=== PATIENT | female | born 1980 ===

== ENCOUNTER 2017-04-08 17:46 | Emergency (ER) | payer OTHER ==
[2017-04-08 17:58] VITALS: BMI 42.5
[2017-04-08 18:03] VITALS: O2SAT 100
[2017-04-08] MEDS ORDERED: Sodium Chloride 0.9% 1,000 ML IV STA (18:06)
--- NOTE | 2017-04-08 18:06 | ED PDOC ---
Arrival/HPI - General Chief Complaint: Abdominal Pain Time Seen by Provider: 04/08/17 18:02 Historian: Patient - History of Present Illness Narrative History of Present Illness (Text): 04/08/17 18:02 36 y/o female, pmh including cholelethiasis, allergic to penicillin, c/o epigastric pain x 2 hours. Pt. stated that she had sudden onset of the epigastric pain after the meal, feels nausea with a quick soft stool, no chest pain or shortness of breath, no chest pain or shortness of breath, no palpitation, no numbness or tingling, no other medical or psychological complaints. Past Medical History - Provider Review Nursing Documentation Reviewed: Yes - Infectious Disease Hx of Infectious Diseases: None - Tetanus Immunization Tetanus Immunization: Unknown - Cardiac Hx Cardiac Disorders: No - Pulmonary Hx Asthma: Yes - Neurological Hx Neurological Disorder: No - HEENT Hx HEENT Disorder: No - Renal Hx Renal Disorder: No - Endocrine/Metabolic Hx Endocrine Disorders: No - Hematological/Oncological Hx Blood Disorders: No - Integumentary Hx Dermatological Disorder: No - Musculoskeletal/Rheumatological Hx Musculoskeletal Disorders: No Hx Falls: No - Gastrointestinal Hx Gall Bladder Disease: Yes Hx Gastroesophageal Reflux: Yes Other/Comment: gallstones - Genitourinary/Gynecological Hx Genitourinary Disorders: No - Psychiatric Hx Depression: No Hx Emotional Abuse: No Hx Physical Abuse: No Hx Substance Use: No - Past Surgical History Past Surgical History: No Previous - Anesthesia Hx Anesthesia: No - Suicidal Assessment Feels Threatened In Home Enviroment: No Family/Social History - Physician Review Nursing Documentation Reviewed: Yes Family/Social History: Unknown Family HX Smoking Status: Never Smoked Hx Alcohol Use: No Hx Substance Use: No Hx Substance Use Treatment: No Allergies/Home Meds Allergies/Adverse Reactions: Allergies almond Allergy (Verified 04/08/17 17:59) SWELLING mushroom Allergy (Verified 04/08/17 17:59) RASH Penicillins Allergy (Verified 04/08/17 17:59) RASH seafood Allergy (Uncoded 04/08/17 17:59) SWELLING Review of Systems - Review of Systems Constitutional: absent: Fatigue Eyes: absent: Vision Changes ENT: absent: Hearing Changes Respiratory: absent: SOB, Cough Cardiovascular: absent: Chest Pain Gastrointestinal: Abdominal Pain, Nausea. absent: Diarrhea, Vomiting Musculoskeletal: absent: Arthralgias, Back Pain Skin: absent: Rash, Pruritis Neurological: absent: Headache, Dizziness, Gait Changes Physical Exam Vital Signs Reviewed: Yes Vital Signs Temp Pulse Resp BP Pulse Ox 04/08/17 22:54 97.8 F 76 16 123/76 100 04/08/17 18:01 98.5 F 84 18 134/78 100 Temperature: Afebrile Blood Pressure: Normal Pulse: Regular Respiratory Rate: Normal Appearance: Positive for: Well-Appearing, Non-Toxic Pain Distress: Mild Mental Status: Positive for: Alert and Oriented X 3 - Systems Exam Head: Present: Atraumatic, Normocephalic Pupils: Present: PERRL Extroacular Muscles: Present: EOMI Conjunctiva: Present: Normal Mouth: Present: Moist Mucous Membranes Neck: Present: Normal Range of Motion Respiratory/Chest: Present: Clear to Auscultation, Good Air Exchange. No: Respiratory Distress, Accessory Muscle Use Cardiovascular: Present: Regular Rate and Rhythm, Normal S1, S2. No: Murmurs Abdomen: Present: Tenderness (+epigastric tenderness), Normal Bowel Sounds. No : Distention, Peritoneal Signs, Rebound, Guarding Back: Present: Normal Inspection. No: CVA Tenderness Upper Extremity: Present: Normal Inspection. No: Cyanosis, Edema Lower Extremity: Present: Normal Inspection. No: Edema Neurological: Present: GCS=15, Speech Normal, Motor Func Grossly Intact, Gait Normal, Memory Normal Skin: Present: Warm, Dry, Normal Color. No: Rashes Psychiatric: Present: Alert, Oriented x 3, Normal Insight, Normal Concentration Medical Decision Making ED Course and Treatment: 04/08/17 18:10 -labs/lipase/ua -gallbladder sonogram -IVF/reglan/pepcid -observe and reassess -Discharge home with pepcid, stay hyrated, bed rest, follow up with your own pmd and GI within 2 days, return to the ER for any new or worsening signs or symptoms. 04/08/17 20:56 -Labs are non-significant except wbc 11.2 which can be pain induced, no fever or chills. -Sonogram show negative lizama with no wall thickening. -Pt. still has the pain, morphine and zofran ordered, CT abdomen and pelvis added. 04/08/17 23:00 -Pt. refused IV or oral contrast. -CT abdomen and pelvis show no acute findings. pt. feels much better, will discharge home. -Discharge home with prilosec, stay hydrated, avoid eating 2 hours before sleeping and avoid skipping meals, avoid drinking acidic/sour/spicy/fried food, avoid carbonated drink, follow up with your own pmd and GI within 2 days, return to the ER for any new or worsening signs or symptoms. - Lab Interpretations Lab Results: 04/08/17 18:12 04/08/17 18:12 Lab Results 04/08/17 18:12: Sodium 140, Potassium 3.8, Chloride 105, Carbon Dioxide 25, Anion Gap 14, BUN 11, Creatinine 0.7, Est GFR ( Amer) > 60, Est GFR (Non- Af Amer) > 60, Random Glucose 98, Calcium 8.6, Total Bilirubin 0.5, AST 83 H, ALT 68 H, Alkaline Phosphatase 85, Total Protein 7.3, Albumin 3.8, Globulin 3.4 , Albumin/Globulin Ratio 1.1, Lipase 132 04/08/17 18:12: WBC 11.2 H D, RBC 4.16, Hgb 12.7, Hct 37.6, MCV 90.4, MCH 30.5, MCHC 33.8, RDW 12.5, Plt Count 360, MPV 9.0, Gran % 46.4 L, Lymph % (Auto) 46.4 H, [place] % (Auto) 4.7, Eos % (Auto) 2.2, Baso % (Auto) 0.3, Gran # 5.18, Lymph # 5.2 H, [place] # 0.5, Eos # 0.3, Baso # 0.03 04/08/17 18:10: Urine Color Yellow, Urine Appearance Sl cloudy, Urine pH 6.0, Ur Specific [place] 1.025, Urine Protein Negative, Urine Glucose (UA) Negative, Urine Ketones Trace H, Urine Blood Large H, Urine Nitrate Negative, Urine Bilirubin Negative, Urine Urobilinogen 0.2, Ur Leukocyte Esterase Negative, Urine RBC 5 - 10, Urine WBC 0 - 2, Ur Epithelial Cells 6 - 8, Urine Bacteria Mod I have reviewed the lab results: Yes - RAD Interpretation Radiology Orders: 04/08/17 18:06 GALL BLADDER [US] Stat 04/08/17 20:24 ABD & PELVIS W/O PO OR IV CONT [CT] Stat FINDINGS: Liver: Diffuse fatty infiltration of the liver. The liver is enlarged. Gallbladder: There are gallstones. There is no wall thickening. No pericholecystic fluid collection. No Lizama's sign as per technologist. Common bile duct: The CBD measures 0.7 cm borderline dilated. No stones. Pancreas: Pancreas evaluation is limited. Right kidney: No stones. No hydronephrosis. IMPRESSION: There are gallstones. There is no wall thickening. No pericholecystic fluid collection. No Lizama's sign as per technologist. Thank you for allowing us to participate in the care of your patient. Dictated and Authenticated by: Susy Glez MD 04/08/2017 7:53 PM Eastern Time ([employer]) ABDOMEN: Liver: Fatty infiltration of the liver. Liver is enlarged. Gallbladder and bile ducts: There are several gallstones. No CT evidence of pericholecystic inflammatory changes. Pancreas: No peripancreatic inflammatory changes. No ductal dilation. Spleen: Unremarkable. No splenomegaly. Adrenals: Unremarkable. No mass. Kidneys and ureters: Unremarkable. No obstructing stones. No hydronephrosis. Stomach and bowel: Bowel evaluation is limited due to lack of distention. No mucosal thickening. Appendix: No findings to suggest acute appendicitis. PELVIS: Bladder: Unremarkable. No stones. Reproductive: Unremarkable as visualized. ABDOMEN and PELVIS: Intraperitoneal space: Unremarkable. No free air. No significant fluid collection. Bones/joints: No acute fracture. No dislocation. Soft tissues: Unremarkable. Vasculature: Unremarkable. No abdominal aortic aneurysm. Lymph nodes: Unremarkable. No enlarged lymph nodes. IMPRESSION: There are several gallstones. No CT evidence of pericholecystic inflammatory changes. Thank you for allowing us to participate in the care of your patient. Dictated and Authenticated by: Susy Glez MD 04/08/2017 10:42 PM Eastern Time ([place] & [employer]) Hotel Maintenance Engineer: Radiologist - Medication Orders Current Medication Orders: Discontinued Medications Famotidine (Pepcid) 20 mg IVP STAT STA Stop: 04/08/17 18:07 Last Admin: 04/08/17 18:35 Dose: 20 mg Sodium Chloride (Sodium Chloride 0.9%) 1,000 mls @ 999 mls/hr IV .Q1H1M STA Stop: 04/08/17 19:06 Last Admin: 04/08/17 18:35 Dose: 999 mls/hr Metoclopramide HCl (Reglan) 10 mg IVP STAT STA Stop: 04/08/17 18:11 Last Admin: 04/08/17 18:35 Dose: Not Given Non-Admin Reason: Patient Refused Morphine Sulfate (Morphine) 4 mg IVP STAT STA Stop: 04/08/17 20:57 Last Admin: 04/08/17 21:34 Dose: Not Given Non-Admin Reason: Patient Refused Ondansetron HCl (Zofran Inj) 4 mg IVP STAT STA Stop: 04/08/17 20:57 Last Admin: 04/08/17 21:34 Dose: Not Given Non-Admin Reason: Patient Refused - PA / MANAGER INFUSION / Resident Statement MD/ has reviewed & agrees with the documentation as recorded. Disposition/Present on Arrival - Present on Arrival Any Indicators Present on Arrival: No History of DVT/PE: No History of Uncontrolled Diabetes: No Urinary Catheter: No History of Decub. Ulcer: No History Surgical Site Infection Following: None - Disposition Have Diagnosis and Disposition been Completed?: Yes Diagnosis: Gastritis Disposition: HOME/ ROUTINE Disposition Time: 23:02 Patient Plan: Discharge Condition: IMPROVED Additional Instructions: -Discharge home with prilosec, stay hydrated, avoid eating 2 hours before sleeping and avoid skipping meals, avoid drinking acidic/sour/spicy/fried food, avoid carbonated drink, follow up with your own pmd and GI within 2 days, return to the ER for any new or worsening signs or symptoms. Prescriptions: Omeprazole Magnesium [Prilosec Otc] 20 mg PO DAILY #10 tcp Referrals: Isela Nieto MD [Primary Care Provider] - Follow up with primary Forms: WORK NOTE
[2017-04-08 18:22] LABS: URINE APPEARANCE SL CLOUDY (CLEAR); URINE BILIRUBIN NEGATIVE (NEGATIVE); URINE BLOOD LARGE (NEGATIVE); URINE COLOR YELLOW (YELLOW); URINE GLUCOSE (UA) NEGATIVE (NEGATIVE); URINE LEUKOCYTE ESTERASE NEGATIVE Leu/uL (NEGATIVE); URINE NITRATE NEGATIVE (NEGATIVE); URINE PROTEIN NEGATIVE mg/dL (<30 mg/dL); URINE UROBILINOGEN 0.2 E.U./dL (<1 E.U./dL)
[2017-04-08 18:36] LABS: URINE BACTERIA MOD (NEG); URINE WBC 0 - 2 /hpf (0-6)
[2017-04-08 18:40] LABS: BASO # 0.03 K/mm3 (0.0-2.0); BASO % 0.3 % (0.0-3.0); EOS # 0.3 (0.0-0.7); EOS % 2.2 % (1.5-5.0); GRAN # 5.18 (1.4-6.5); GRAN % 46.4 % (50.0-68.0); HEMOGLOBIN 12.7 gm/dL (12.0-16.0); LYMPH # 5.2 (1.2-3.4); LYMPH % 46.4 % (22.0-35.0); MEAN CELL VOLUME 90.4 fL (80.0-105.0); MEAN CORPUSCULAR HEMOGLOBIN 30.5 pg (25.0-35.0); MEAN CORPUSCULAR HGB CONC 33.8 g/dl (31.0-37.0); MONO # 0.5 (0.1-0.6); MONO % 4.7 % (1.0-6.0); PLATELET COUNT 360 10^3/uL (120.0-450.0); RBC 4.16 10^6/uL (3.5-6.1); RED CELL DISTRIBUTION WIDTH 12.5 % (11.5-14.5); WHITE BLOOD COUNT 11.2 10^3/ul (4.5-11.0)
[2017-04-08 18:46] LABS: ALB/GLOB RATIO 1.1 (1.1-1.8); ALBUMIN 3.8 g/dL (3.0-4.8); ALT/SGPT 68 U/L (7-56); AST/SGOT 83 U/L (15-39); BLOOD UREA NITROGEN 11 mg/dL (7-21); CALCIUM 8.6 mg/dL (8.4-10.5); GFR AFRICAN-AMERICAN > 60; GFR NON-AFRICAN AMERICAN > 60; LIPASE 132 U/L (23-300)
[2017-04-08] MEDS: Morphine 4 mg/ml ISec IVP STA ×2 (21:08→21:34)
[2017-04-08 23:18] VITALS: BP 108/68; PULSE 62; RESP 18; TEMP 98.4
--- NOTE | 2017-04-09 08:52 | US ---
HISTORY: epigastric pain COMPARISON: None. TECHNIQUE: Sonographic evaluation of the right upper quadrant of the abdomen. FINDINGS: LIVER: Measures 18.1 by 12.7 x 20.1 cm in length. Diffuse increased echogenicity of the liver parenchyma. No mass. No intrahepatic bile duct dilatation. GALLBLADDER: Multiple gallstones at some sludge is noted. No gallbladder wall edema or pericholecystic fluid. No positive sonographic Lizama sign reported per technologist. COMMON BILE DUCT: Measures 7 mm. -this tapers to the head of the pancreas where it measures 0.7 mm. A 7 mm is borderline prominent No stones. PANCREAS: Unremarkable as visualized. No mass. No ductal dilatation. RIGHT KIDNEY: Measures 10.9 x 4.5 x 4.5 cm in length. Normal echogenicity. No calculus, mass, or hydronephrosis. AORTA: No aneurysmal dilatation. IVC: Unremarkable. OTHER FINDINGS: None . IMPRESSION: Hepatomegaly with the hepatic steatosis or other hepatic parenchymal diffuse pathology. No discrete liver mass is appreciated. No dilated ducts Multiple gallstones with some gallbladder sludge. No positive sonographic Lizama sign. No pericholecystic fluid or gallbladder wall thickening/edema suggested. Common bile duct borderline prominent. No stones here is noted Comments: Preliminary report sent to ad
--- NOTE | 2017-04-09 08:55 | CT ---
PROCEDURE: CT Abdomen and Pelvis without intravenous contrast HISTORY: epigastric/upper abdominal pain COMPARISON: None. TECHNIQUE: Without contrast.. Contrast Dose: Radiation dose: Total exam DLP = 1312 mGy-cm. This CT exam was performed using one or more of the following dose reduction techniques: Automated exposure control, adjustment of the mA and/or kV according to patient size, and/or use of iterative reconstruction technique. FINDINGS: LOWER THORAX: Unremarkable. LIVER: Unremarkable. No gross lesion or ductal dilatation. GALLBLADDER AND BILE DUCTS: Multiple gallstones are seen. No evidence of gallbladder inflammation PANCREAS: Unremarkable. No gross lesion or ductal dilatation. SPLEEN: Unremarkable. ADRENALS: Unremarkable. No mass. KIDNEYS AND URETERS: Unremarkable. No hydronephrosis. No solid mass. VASCULATURE: Unremarkable. No aortic aneurysm. BOWEL: Unremarkable. No obstruction. No gross mural thickening. APPENDIX: Unremarkable. Normal appendix. PERITONEUM: Unremarkable. No free fluid. No free air. LYMPH NODES: Unremarkable. No enlarged lymph nodes. BLADDER: Unremarkable. REPRODUCTIVE: Unremarkable. BONES: No acute fracture. OTHER FINDINGS: The report concurs with the preliminary [facility] report IMPRESSION: Multiple gallstones. No acute intra-abdominal findings
== END 2017-04-08 23:18 | disposition home or self-care (01) ==
LOC: ED 17:46
DX: K29.70 Gastritis, unspecified, without bleeding (principal); Z88.0 Allergy status to penicillin
CPT/HCPCS: 74176; 76705; 80053; 81001; 83690; 85025; 96374; 99284; J7040

== ENCOUNTER 2018-08-30 17:47 | Emergency (ER) | payer OTHER ==
[2018-08-30 17:47] VITALS: BMI 42.5
[2018-08-30 18:14] VITALS: BP 141/88; PULSE 70; RESP 20; TEMP 98.2; O2SAT 99
[2018-08-30] MEDS ORDERED: Atrop/Hyosc/Scopal/PB Elixir (120 ml) PO STA (19:13)
[2018-08-30] MEDS ORDERED: Alum-Mag Hydrox-Simethicone Susp (30 mL) PO STA (19:13)
--- NOTE | 2018-08-30 19:45 | ED PDOC ---
Arrival/HPI - General Chief Complaint: Abdominal Pain Historian: Patient - History of Present Illness Narrative History of Present Illness (Text): 08/30/18 20:01 37 year old F w/ h/o gallstones presenting to the Emergency Room with complaint of epigastric abdominal pain that worsened prior to arrival. The patient states she noted the epigastric pain began early in the day with associated nausea. She reports similar episode previously where she was diagnosed with gallstones, but did not elect to undergo cholecystectomy. The patient denies any association of the pain with spicy/acidic food or caffeine. She denies any fevers, chills, emesis, chest pain, shortness of breath, back pain, dysuria, hematuria or changes in bowel habits. Time/Duration: 24 hours Symptom Onset: Sudden Symptom Course: Resolved Quality: Aching Activities at Onset: Rest Context: Home Past Medical History - Provider Review Nursing Documentation Reviewed: Yes - Travel History Have you recently traveled outside [place] w/in the past 3 mons?: No - Infectious Disease Hx of Infectious Diseases: None - Tetanus Immunization Tetanus Immunization: Unknown - Cardiac Hx Cardiac Disorders: No - Pulmonary Hx Asthma: Yes - Neurological Hx Neurological Disorder: No - HEENT Hx HEENT Disorder: No - Renal Hx Renal Disorder: No - Endocrine/Metabolic Hx Endocrine Disorders: No - Hematological/Oncological Hx Blood Disorders: No - Integumentary Hx Dermatological Disorder: No - Musculoskeletal/Rheumatological Hx Musculoskeletal Disorders: No Hx Falls: No - Gastrointestinal Hx Gall Bladder Disease: Yes Hx Gastroesophageal Reflux: Yes Other/Comment: gallstones - Genitourinary/Gynecological Hx Genitourinary Disorders: No - Psychiatric Hx Depression: No Hx Emotional Abuse: No Hx Physical Abuse: No Hx Substance Use: No - Past Surgical History Past Surgical History: No Previous - Anesthesia Hx Anesthesia: No - Suicidal Assessment Feels Threatened In Home Enviroment: No Family/Social History - Physician Review Nursing Documentation Reviewed: Yes Family/Social History: No Known Family HX Smoking Status: Never Smoked Hx Alcohol Use: No Hx Substance Use: No Hx Substance Use Treatment: No Allergies/Home Meds Allergies/Adverse Reactions: Allergies almond Allergy (Verified 06/25/18 10:43) SWELLING mushroom Allergy (Verified 06/25/18 10:43) RASH Penicillins Allergy (Verified 06/25/18 10:43) RASH seafood Allergy (Uncoded 06/25/18 10:43) SWELLING Review of Systems - Physician Review All systems were reviewed & negative as marked: Yes - Review of Systems Constitutional: absent: Fevers Respiratory: absent: SOB, Wheezing Cardiovascular: absent: Chest Pain, Palpitations, Edema Gastrointestinal: Abdominal Pain, Nausea. absent: Stool Changes, Constipation, Diarrhea, Vomiting Physical Exam Vital Signs Temp Pulse Resp BP Pulse Ox 08/30/18 17:47 98.2 F 70 20 141/88 99 Temperature: Afebrile Blood Pressure: Normal Pulse: Regular Respiratory Rate: Normal Appearance: Positive for: Well-Appearing, Non-Toxic, Comfortable Mental Status: Positive for: Alert and Oriented X 3 - Systems Exam Head: Present: Atraumatic, Normocephalic Pupils: Present: PERRL Extroacular Muscles: Present: EOMI Conjunctiva: Present: Normal Mouth: Present: Moist Mucous Membranes Neck: Present: Normal Range of Motion Respiratory/Chest: Present: Clear to Auscultation, Good Air Exchange. No: Respiratory Distress Cardiovascular: Present: Regular Rate and Rhythm, Normal S1, S2. No: Murmurs Abdomen: Present: Normal Bowel Sounds. No: Tenderness, Distention, Peritoneal Signs Upper Extremity: Present: Normal Inspection. No: Cyanosis, Edema Neurological: Present: GCS=15, CN II-XII Intact, Speech Normal Skin: Present: Warm, Dry, Normal Color. No: Rashes Psychiatric: Present: Alert, Oriented x 3, Normal Insight. No: Normal Concentration Medical Decision Making ED Course and Treatment: 08/30/18 20:06 Impression 37 year old F w/ h/o gallstones presenting to the Emergency Room with abdominal pain Differential Diagnoses Include But Are Not Limited To: --Biliary colic --Cholecystitis --Pancreatitis Plan --Labs --Abdominal US --Urinalysis --NSS --Pepcid --Maalox --Reassess & disposition Progress Notes 08/30/18 20:09 Patient does not want to wait for workup and would rather see her PCP in the morning. AMA consent forms signed. She understands the danger of leaving prior to workup and understands the risks of imminient , disability and worsening pain. - RAD Interpretation Radiology Orders: 08/30/18 19:16 ABDOMEN COMPLETE [US] Stat - Medication Orders Current Medication Orders: Discontinued Medications Al Hydrox/Mg Hydrox/Simethicone (Maalox Plus 30 Ml) 30 ml PO STAT STA Stop: 08/30/18 19:14 Belladonna/Phenobarbital ( Elixir) 5 ml PO STAT STA Stop: 08/30/18 19:14 Ketorolac Tromethamine (Toradol) 30 mg IVP STAT STA Stop: 08/30/18 19:16 Disposition/Present on Arrival - Present on Arrival Any Indicators Present on Arrival: No History of DVT/PE: No History of Uncontrolled Diabetes: No Urinary Catheter: No History of Decub. Ulcer: No History Surgical Site Infection Following: None - Disposition Have Diagnosis and Disposition been Completed?: Yes Diagnosis: Biliary colic Disposition: AGAINST MEDICAL ADVICE Disposition Time: 20:13 Condition: STABLE
== END 2018-08-30 20:00 | disposition left against medical advice (07) ==
LOC: ED 17:47
DX: K80.50 Calculus of bile duct without cholangitis or cholecystitis without obstruction (principal)